=== PATIENT | male | born 1985 | race Caucasian/White ===

== ENCOUNTER 2019-08-19 03:15 | Emergency (ER) | payer OTHER ==
[~2019-08-19] VITALS: Ht 190.5 cm; Wt 104.8 kg
[2019-08-19] MEDS ORDERED: HYDROXYZINE HCL25 M2 PO (04:29)
[2019-08-19] MEDS ORDERED: TRAZODONE HCL50 MG PO (04:29)
[2019-08-19 04:59] VITALS: BP 124/81
== END 2019-08-19 05:00 | disposition home or self-care (01) ==
LOC: M.ERS 03:15
DX: F41.9 Anxiety disorder, unspecified (principal); G47.00 Insomnia, unspecified